=== PATIENT | male | born 1940 | race Caucasian/White ===

== ENCOUNTER 2024-12-07 09:47 | Day surgery (SDC) | payer OTHER ==
[2024-12-07] VITALS (11 sets, daily range): BP systolic 120–160; BP diastolic 54–111
[~2024-12-07] VITALS: Ht 172.7 cm; Wt 84.0 kg
[~2024-12-07 09:47] MED LIST: ACET325 PO; AMLO10 PO; ASPI81CH PO; ATOR20 PO; CYCL10 PO; Centrum Silver1 EAC1 PO; DILT300 PO; FISH1000 PO; FORM12IH INH; GABA300 PO; GLIP5 PO; LOSARTAN-HCTZ1 EAC3 PO; Lasix20 MG PO; OMEP20ER PO; OXYC5 PO; STIOLTO RESPIMAT4 G1 INH; SYNJARDY 12.5-1 EAC3 PO; Senna S Tablet1 EACH PO; Super B-50 Com1 EACH PO; TRAZ100 PO; UBID10; UBID10 PO; VALS80 PO; VITAMIN D31000 UNIT PO
[2024-12-07] MEDS ORDERED: FentaNYL Citrate 50 MCG/ML 2 ML Injection ONE ×2 (10:15→12:58)
[2024-12-07] MEDS ORDERED: CeFAZolin Sodium 2,000 MG in NS 100 ML IV SCH (10:15)
[2024-12-07] MEDS ORDERED: Midazolam HCl 1MG / ML 2ML Vial ONE (10:15)
[2024-12-07] MEDS ORDERED: Rocuronium Bromide 10 MG/ML 5ML Injection IV ONE (10:17)
[2024-12-07] MEDS ORDERED: Bupivacaine 0.5% W/EPI 1:200000 SDV 30 ML Vial ONE (11:11)
--- NOTE | 2024-12-07 11:27 | NUR ---
PT A&OX4, BREATHING RA, CALM, NO COMPLAINTS. GLASSES TO PACU. Ambulatory in Day Surgery Patient confirms NPO status and agrees with scheduled surgery. Pre-Op teaching done. Pt verbalizes understanding. Patient States Post-Procedure ride home has been arranged.
[2024-12-07] MEDS ORDERED: FentaNYL Citrate 50 MCG/ML 2 ML Injection IV PRN ×2 (12:25→12:40)
[2024-12-07] MEDS ORDERED: HYDROmorphone HCl/Pf 1MG SYR IV PRN ×2 (12:25→12:30)
[2024-12-07] MEDS ORDERED: Ondansetron HCl 2 MG / ML 2ML Vial IV PRN (12:30)
[2024-12-07] MEDS ORDERED: Sugammadex Sodium 200 MG/2ML SDV (100 MG/ML) ONE (12:33)
[2024-12-07] MEDS ORDERED: Ondansetron HCl 2 MG / ML 2ML Vial ONE (12:46)
[2024-12-07] MEDS ORDERED: HYDROmorphone HCl/Pf 1MG SYR ONE ×2 (12:55→13:14)
--- NOTE | 2024-12-07 12:56 | NUR ---
12/07/24 1256 Yulisa Call GASTROSTOMY FEEDING TUBE 20FR, 10ML
[2024-12-07] MEDS ORDERED: Ketorolac Tromethamine 30mg Vial ONE (13:00)
[2024-12-07] MEDS ORDERED: OxyCODONE 5 mg/Acetamin 325 mg TABLET PO PRN (13:10)
[2024-12-07] MEDS ORDERED: Ketorolac Tromethamine 30mg Vial IV ONE (13:20)
--- NOTE | 2024-12-07 14:28 | NUR ---
PT A&OX4, BREATHING RA, TOLERATING PO INTAKE. PT HAS NO NAUSEA AND STATES PAIN IS TOLERABLE TO SURGICAL SITES. PT ABDOMEN SLIGHTLY DISTENDED, CONSISTENT WITH POST OP. Patient up to Ambulate independently. Gait steady. Discharge instructions reviewed with patient. Patient verbalizes understanding. Copy given to patient to take home. Dressing to procedure site clean, dry, intact with no visible drainage, swelling, erythema or bruising noted. SCANT SANGUINOUS DRAINAGE AROUND PEG SITE. Discharged via wheelchair to private car for ride home. SON AT BEDSIDE. PT DISCHARGE D WITH ALL BELONGINGS INCLUDING WALLET, GLASSES AND WATCH.
== END 2024-12-07 14:20 | disposition home or self-care (01) ==
LOC: ORSCMMR 09:47 → ORD 11:00 → ORSCMMR 14:20
PROVIDERS: Surgery
PROC: 0DH64UZ Insertion of Feeding Device into Stomach, Percutaneous Endoscopic Approach (ICD-10-PCS; principal; 2024-12-07 11:00)
PROC: 8E0W4CZ Robotic Assisted Procedure of Trunk Region, Percutaneous Endoscopic Approach (ICD-10-PCS; principal; 2024-12-07 11:00)
DX: C15.4 Malignant neoplasm of middle third of esophagus (principal); J44.9 Chronic obstructive pulmonary disease, unspecified; E11.9 Type 2 diabetes mellitus without complications; Z79.899 Other long term (current) drug therapy; Z87.891 Personal history of nicotine dependence
CPT/HCPCS: 82947; A9270; J0690; J1171; J1885; J2250; J2405; J2704; J3010; J7120

== ENCOUNTER 2024-12-14 14:23 | Emergency (ER) | payer OTHER ==
[~2024-12-14] VITALS: Ht 172.7 cm; Wt 81.7 kg
[2024-12-14 14:45] VITALS: BP 115/83
== END 2024-12-14 15:13 | disposition home or self-care (01) ==
LOC: ER 14:23
DX: K94.23 Gastrostomy malfunction (principal); Z88.0 Allergy status to penicillin; Z88.8 Allergy status to other drugs, medicaments and biological substances; Z79.82 Long term (current) use of aspirin; Z79.899 Other long term (current) drug therapy; Z59.89 Other problems related to housing and economic circumstances
CPT/HCPCS: 99282

== ENCOUNTER 2025-01-04 07:57 | Emergency (ER) | payer OTHER ==
[~2025-01-04] VITALS: Ht 170.2 cm; Wt 74.8 kg
[2025-01-04 08:18] VITALS: BP 150/79
== END 2025-01-04 12:53 | disposition home or self-care (01) ==
LOC: ER 07:57
DX: K94.23 Gastrostomy malfunction (principal); Z79.899 Other long term (current) drug therapy; Z88.0 Allergy status to penicillin; Z88.8 Allergy status to other drugs, medicaments and biological substances
CPT/HCPCS: 43762; 49465; 99283-25; Q9963

== ENCOUNTER 2025-01-15 11:12 | Day surgery (SDC) | payer OTHER ==
[2025-01-15] MEDS ORDERED: NS 1,000 ML IV SCH (11:55)
[2025-01-15 14:46] VITALS: BP 116/58
== END 2025-01-15 16:05 | disposition home or self-care (01) ==
LOC: ATC 11:12
DX: C15.5 Malignant neoplasm of lower third of esophagus (principal)
CPT/HCPCS: 96360; J7030

== ENCOUNTER 2025-01-18 03:38 | Day surgery (SDC) | payer OTHER ==
[2025-01-18] MEDS ORDERED: NS 1,000 ML IV SCH ×2 (07:30→16:20)
[2025-01-18 16:45] VITALS: BP 128/45
== END 2025-01-18 17:45 | disposition home or self-care (01) ==
LOC: ATC 03:38
DX: C15.5 Malignant neoplasm of lower third of esophagus (principal)
CPT/HCPCS: 96360; J7030

== ENCOUNTER 2025-01-21 01:35 | Day surgery (SDC) | payer OTHER ==
[2025-01-21] MEDS ORDERED: NS 1,000 ML IV SCH (07:20)
[2025-01-21 16:07] VITALS: BP 118/42
== END 2025-01-21 17:28 | disposition home or self-care (01) ==
LOC: ATC 01:35
DX: C15.5 Malignant neoplasm of lower third of esophagus (principal); Z88.0 Allergy status to penicillin
CPT/HCPCS: 96360; J7030

== ENCOUNTER 2025-01-23 02:28 | Day surgery (SDC) | payer OTHER ==
[2025-01-23] MEDS ORDERED: NS 1,000 ML IV SCH (07:00)
[2025-01-23 14:45] VITALS: BP 134/68
== END 2025-01-23 16:10 | disposition home or self-care (01) ==
LOC: ATC 02:28
DX: C15.5 Malignant neoplasm of lower third of esophagus (principal); Z88.0 Allergy status to penicillin
CPT/HCPCS: 96360; J7030

== ENCOUNTER 2025-01-23 10:35 | Emergency (ER) | payer OTHER ==
[~2025-01-23] VITALS: Ht 170.2 cm; Wt 79.4 kg
[2025-01-23 11:26] VITALS: BP 122/66
[2025-01-23] MEDS ORDERED: OxyCODONE 5 mg/Acetamin 325 mg TABLET PO ONE (12:35)
== END 2025-01-23 14:00 | disposition home or self-care (01) ==
LOC: ER 10:35
DX: K94.23 Gastrostomy malfunction (principal); E11.9 Type 2 diabetes mellitus without complications; Z79.899 Other long term (current) drug therapy; Z88.0 Allergy status to penicillin; Z88.8 Allergy status to other drugs, medicaments and biological substances
CPT/HCPCS: 99282

== ENCOUNTER 2025-01-25 09:35 | Day surgery (SDC) | payer OTHER ==
[~2025-01-25 09:35] MED LIST changes: +NS 1,000 ML IV SCH
[2025-01-25 16:13] VITALS: BP 116/52
== END 2025-01-25 17:26 | disposition home or self-care (01) ==
LOC: ATC 09:35
DX: C15.5 Malignant neoplasm of lower third of esophagus (principal); Z88.0 Allergy status to penicillin
CPT/HCPCS: 96360; J7030

== ENCOUNTER 2025-01-28 02:19 | Day surgery (SDC) | payer OTHER ==
[~2025-01-28 02:19] MED LIST changes: -NS 1,000 ML IV SCH
[2025-01-28] MEDS ORDERED: NS 1,000 ML IV SCH (06:00)
[2025-01-28 15:36] VITALS: BP 132/61
== END 2025-01-28 16:40 | disposition home or self-care (01) ==
LOC: ATC 02:19
DX: C15.5 Malignant neoplasm of lower third of esophagus (principal); Z88.0 Allergy status to penicillin
CPT/HCPCS: J7030

== ENCOUNTER 2025-02-01 01:06 | Day surgery (SDC) | payer OTHER ==
[2025-02-01] MEDS ORDERED: NS 1,000 ML IV SCH (07:00)
[2025-02-01 08:27] VITALS: BP 123/55
== END 2025-02-01 09:44 | disposition home or self-care (01) ==
LOC: ATC 01:06
DX: C15.5 Malignant neoplasm of lower third of esophagus (principal); Z88.0 Allergy status to penicillin
CPT/HCPCS: 96360; J7030

== ENCOUNTER 2025-02-04 00:51 | Day surgery (SDC) | payer OTHER ==
[2025-02-04] MEDS ORDERED: NS 1,000 ML IV SCH (07:00)
[2025-02-04 08:54] VITALS: BP 118/56
== END 2025-02-04 10:10 | disposition home or self-care (01) ==
LOC: ATC 00:51
DX: C15.5 Malignant neoplasm of lower third of esophagus (principal); Z88.0 Allergy status to penicillin
CPT/HCPCS: 96360; J7030

== ENCOUNTER 2025-02-06 04:14 | Day surgery (SDC) | payer OTHER ==
[2025-02-06] MEDS ORDERED: NS 1,000 ML IV SCH (06:45)
[2025-02-06 07:51] VITALS: BP 110/52
== END 2025-02-06 08:52 | disposition home or self-care (01) ==
LOC: ATC 04:14
DX: C15.5 Malignant neoplasm of lower third of esophagus (principal); Z88.0 Allergy status to penicillin
CPT/HCPCS: 96360; J7030

== ENCOUNTER 2025-02-07 16:54 | Emergency (ER) | payer OTHER ==
[~2025-02-07] VITALS: Ht 170.2 cm; Wt 73.5 kg
[2025-02-07 21:39] VITALS: BP 150/64
== END 2025-02-07 23:03 | disposition home or self-care (01) ==
LOC: ER 16:54
DX: K94.23 Gastrostomy malfunction (principal); E11.9 Type 2 diabetes mellitus without complications; Z79.899 Other long term (current) drug therapy
CPT/HCPCS: 99282

== ENCOUNTER 2025-02-13 19:19 | Emergency (ER) | payer OTHER ==
[~2025-02-13] VITALS: Ht 170.2 cm; Wt 74.8 kg
[2025-02-13 20:16] LABS: BASOPHILS ABSOLUTE AUTO 0.09 K/mm3 (0.00-0.23); BASOPHILS PERCENT AUTO 1 % (0-2); EOSINOPHILS ABSOLUTE AUTO 0.40 K/mm3 (0.00-0.68); EOSINOPHILS PERCENT AUTO 4 % (0-6); Hematocrit 32.8 % (37.0-53.0); Hemoglobin 11.4 g/dL (13.5-17.5); IMMATURE GRAN ABSOLUTE AUTO 0.04 K/mm3 (0.00-0.10); IMMATURE GRAN PERCENT AUTO 0 % (0-1); LYMPHOCYTES ABSOLUTE AUTO 3.94 K/mm3 (0.84-5.20); LYMPHOCYTES PERCENT AUTO 43 % (21-46); MONOCYTES ABSOLUTE AUTO 0.77 K/mm3 (0.16-1.47); MONOCYTES PERCENT AUTO 8 % (4-13); Mean Corpuscular HGB Conc 34.8 g/dL (31.5-36.5); Mean Corpuscular Volume 94 fL (80-100); NEUTROPHILS ABSOLUTE AUTO 3.97 K/mm3 (1.96-9.15); NEUTROPHILS PERCENT AUTO 43 % (41-73); NRBC ABSOLUTE 0.00 K/mm3 (0.00-0.02); NRBC Auto 0.0 /100 WBC (0.0-0.2); Platelet Count 147 K/mm3 (150-400); RDW Coefficient Variation 15.9 % (11.7-14.2); RDW Standard Deviation 55.0 fL (35.1-46.3)
[2025-02-13 20:48] LABS: Alanine Aminotransfer (ALT/SGP 27.0 U/L (12-78); Albumin, Blood 3.6 g/dL (3.4-5.0); Albumin/Globulin Ratio 1.0 (0.8-1.8); Anion Gap 11.0 mmol/L (3-11); Aspartate Aminotrans (AST/SGOT 24.0 U/L (12-37); Bilirubin, Total 0.7 mg/dL (0.1-1.0); Blood Urea Nitrogen 16.0 mg/dL (8-24); CO2, Blood 21.0 mmol/L (21-32); Calcium, Blood 9.8 mg/dL (8.5-10.1); Chloride, Blood 107.0 mmol/L (98-108); Creatinine, Blood 0.51 mg/dL (0.60-1.20); Globulin, Blood 3.6 g/dL (2.2-4.0); Glucose, Blood 145.0 mg/dL (70-99); Potassium, Blood 3.7 mmol/L (3.5-5.5); Sodium, Blood 135.0 mmol/L (136-145); Total Protein, Blood 7.2 g/dL (6.4-8.2)
[2025-02-13] MEDS ORDERED: Diazepam 5 MG / ML 2ML SYR IV ONE (22:40)
[2025-02-13 23:03] LABS: Source, Urine Clean Catch
[2025-02-13 23:05] LABS: Bilirubin, Urine Neg (Neg); Glucose Qualitative, Urine Neg (Neg); Ketones, Urine 2+ (Neg); Leukocyte Esterase, Urine Neg (Neg); Protein, Urine Neg (Neg); Specific Gravity, Urine 1.010 (1.003-1.022); Urobilinogen, Urine NORM (Normal)
[2025-02-13 23:14] LABS: Color, Urine Yellow (P-Yellow)
[2025-02-14] MEDS ORDERED: MIRALAX17 GM PO (00:14)
[2025-02-14] MEDS ORDERED: Adult Glycerin1 EACH PR (00:14)
[2025-02-14] MEDS ORDERED: Glycerin Adult Supp 1 EA PR ONE (00:20)
[2025-02-14 02:14] VITALS: BP 138/71
== END 2025-02-14 02:16 | disposition home or self-care (01) ==
LOC: ER 19:19
PROVIDERS: Student in an Organized Health Care Education/Training Program
DX: K59.00 Constipation, unspecified (principal); R91.1 Solitary pulmonary nodule; N28.1 Cyst of kidney, acquired; D69.6 Thrombocytopenia, unspecified; Z88.0 Allergy status to penicillin; Z88.8 Allergy status to other drugs, medicaments and biological substances; Z79.899 Other long term (current) drug therapy
CPT/HCPCS: 74177; 80053; 81003; 83605; 85025; 93005; 93010; 96361; 96374-59; 99284-25; A9270; J3360; J7120; Q9967

== ENCOUNTER 2025-02-14 07:11 | Day surgery (SDC) | payer OTHER ==
[~2025-02-14 07:11] MED LIST changes: +Adult Glycerin1 EACH PR; +MIRALAX17 GM PO
[2025-02-14] MEDS ORDERED: NS 1,000 ML IV SCH (07:15)
[2025-02-14 10:16] VITALS: BP 109/51
[2025-02-14 11:27] VITALS: BP 114/52
== END 2025-02-14 11:27 | disposition home or self-care (01) ==
LOC: ATC 07:11
DX: C15.5 Malignant neoplasm of lower third of esophagus (principal)
CPT/HCPCS: 96360; J7030